=== PATIENT | female | born 1955 | race Two or more races ===

== ENCOUNTER → 2024-09-03 07:27 | Outpatient (CLI) | payer OTHER ==
[~2024-09-03 07:27] MED LIST: SINGULAIR10 MG
== END | disposition home or self-care (01) ==
LOC: NUCLEAR 07:00
PROVIDERS: ATTEND Internal Medicine
DX: I20.9 Angina pectoris, unspecified (principal)
CPT/HCPCS: 78452; 93017; A9500; J0153